=== PATIENT | female | born 1985 | race Two or more races ===

== ENCOUNTER 2023-05-31 02:29 | Emergency (ER) | payer MEDICAID, OTHER ==
[~2023-05-31] VITALS: Ht 175.3 cm; Wt 181.0 kg
[2023-05-31 03:37] VITALS: BP 152/72; PULSE 97; RESP 20; TEMP 98.3; O2SAT 97
[2023-05-31] MEDS ORDERED: KETOROLAC TROMETH 30 MG/ML 1ML VIAL IM ONE (04:15)
== END 2023-05-31 04:39 | disposition home or self-care (01) ==
LOC: ER 02:29
DX: M54.2 Cervicalgia (principal)
CPT/HCPCS: 96372; 99283; J1885

== ENCOUNTER 2023-07-02 11:11 | Emergency (ER) | payer MEDICAID ==
[~2023-07-02] VITALS: Ht 175.3 cm; Wt 181.0 kg
[2023-07-02 13:15] VITALS: TEMP 98.1
[2023-07-02 13:16] VITALS: O2SAT 97
[2023-07-02] MEDS: CIPROFLOXACIN 400MG/200ML 200 ML IV ONE (13:53)
[2023-07-02] MEDS: MORPHINE SULFATE 4 MG/ML SYR/VIAL IM ONE (13:56)
[2023-07-02] MEDS: DexAMETHasone SOD PHOS 10MG/1ML VIAL INJ IM ONE (13:57)
[2023-07-02] MEDS: CEFTRIAXONE SODIUM 2 GM in D5W 5% 100 ML IV ONE (15:52)
[2023-07-02 17:00] VITALS: BP 138/85; PULSE 91; RESP 18
[2023-07-02] MEDS: HYDROcodone-ACET 5/325MG TAB PO ONE (17:07)
[2023-07-02] MEDS ORDERED: TRAM50TA2 PO (17:17)
[2023-07-02] MEDS ORDERED: CEPH500C PO (17:17)
[2023-07-02] MEDS ORDERED: AUG875T PO (17:17)
== END 2023-07-02 17:44 | disposition home or self-care (01) ==
LOC: ER 11:11
DX: L03.114 Cellulitis of left upper limb (principal); S61.452A Open bite of left hand, initial encounter; W54.0XXA Bitten by dog, initial encounter; Y93.89 Activity, other specified; Y92.89 Other specified places as the place of occurrence of the external cause; Y99.8 Other external cause status
CPT/HCPCS: 73130; 96365; 96366; 96368; 96372; 99284; J0696; J0744; J1100; J2270; J7060

== ENCOUNTER 2023-07-05 10:48 | Emergency (ER) | payer MEDICAID ==
[~2023-07-05] VITALS: Ht 175.3 cm; Wt 182.3 kg
[~2023-07-05 10:48] MED LIST: AUG875T PO; CEPH500C PO; TRAM50TA2 PO
[2023-07-05 11:30] VITALS: BP 157/76; PULSE 89; RESP 18; TEMP 97.4; O2SAT 95
[2023-07-05] MEDS: LIDOCAINE 1% HCL (LOCAL ANESTH.) INJ 20ML MDV ONE (12:38)
[2023-07-05] MEDS: LIDOCAINE 1% HCL (LOCAL ANESTH.) INJ 20ML MDV IJ ONE (12:38)
[2023-07-05] MEDS: cefTRIAXone SOD 1,000 MG VL IM ONE (12:45)
== END 2023-07-05 12:53 | disposition home or self-care (01) ==
LOC: ER 10:48
DX: S61.452D Open bite of left hand, subsequent encounter (principal); L03.114 Cellulitis of left upper limb; Z79.2 Long term (current) use of antibiotics; Z79.899 Other long term (current) drug therapy; W54.0XXD Bitten by dog, subsequent encounter
CPT/HCPCS: 10060; 87205; 96372; 99283; J0696; J2001

== ENCOUNTER 2023-07-07 14:58 | Emergency (ER) | payer MEDICAID ==
[~2023-07-07] VITALS: Ht 175.3 cm; Wt 181.0 kg
[2023-07-07 15:20] VITALS: BP 111/71
[2023-07-07] MEDS: NEOMYCIN-BACITRACIN-POLYM UNITDOSE PKG TOP OINT TOP ONE (19:16)
[2023-07-07 19:19] VITALS: PULSE 95; RESP 16; O2SAT 94
== END 2023-07-07 17:16 | disposition home or self-care (01) ==
LOC: ER 14:58
DX: L03.114 Cellulitis of left upper limb (principal); Z79.2 Long term (current) use of antibiotics; Z79.899 Other long term (current) drug therapy

== ENCOUNTER 2023-07-09 15:30 | Emergency (ER) | payer MEDICAID ==
[~2023-07-09] VITALS: Ht 175.3 cm; Wt 179.1 kg
[2023-07-09 16:41] VITALS: BP 136/77; PULSE 94; RESP 16; TEMP 97.8; O2SAT 96
[2023-07-09] MEDS ORDERED: DOXY-286 PO (17:04)
== END 2023-07-09 17:11 | disposition home or self-care (01) ==
LOC: ER 15:30
DX: L02.512 Cutaneous abscess of left hand (principal); Z79.2 Long term (current) use of antibiotics; Z79.899 Other long term (current) drug therapy